=== PATIENT | female | born 1960 | race Caucasian/White ===

== ENCOUNTER → 2024-03-29 09:16 | Outpatient (REF) | payer OTHER, SELFPAY | LOC: WDC 09:16 | PROVIDERS: ATTENDING PHYSICIAN Obstetrics & Gynecology Gynecology; FAMILY PHYSICIAN Nurse Practitioner | DX: N63.20 Unspecified lump in the left breast, unspecified quadrant (principal); Z80.3 Family history of malignant neoplasm of breast; N63.24 Unspecified lump in the left breast, lower inner quadrant | CPT/HCPCS: 76642; 77062; 77066 ==

== ENCOUNTER → 2025-05-09 07:01 | Outpatient (REF) | payer OTHER, SELFPAY | LOC: HWWDC 07:01 | PROVIDERS: REFERRING PHYSICIAN Obstetrics & Gynecology Gynecology | DX: Z12.31 Encounter for screening mammogram for malignant neoplasm of breast (principal); M81.0 Age-related osteoporosis without current pathological fracture | CPT/HCPCS: 77063; 77067; 77080 ==